=== PATIENT | male | born 1995 | race American Indian/Alaskan Native ===

== ENCOUNTER 2017-01-15 23:00 | Emergency (ER) | payer SELFPAY ==
[2017-01-15 23:13] VITALS: BP 103/58
--- NOTE | 2017-01-16 00:38 | XRay Report ---
FINAL REPORT EXAM: XR HAND 3+V RT HISTORY: Rt hand injury COMPARISON: None available. FINDINGS: Three views of right hand obtained. Transverse nondisplaced fracture of the 4th metacarpal body. There is mild deformity of the 4th and 5th metacarpal bones concerning for sequelae of prior trauma. No other definite acute fracture. Joint spaces are preserved. IMPRESSION: Acute, transverse nondisplaced fracture of the 4th metacarpal body.
== END 2017-01-16 06:16 | disposition left against medical advice (07) ==
LOC: ED 23:00
DX: S69.91XA Unspecified injury of right wrist, hand and finger(s), initial encounter (principal); X58.XXXA Exposure to other specified factors, initial encounter; Y93.9 Activity, unspecified; Y92.89 Other specified places as the place of occurrence of the external cause; Y99.9 Unspecified external cause status; Z53.21 Procedure and treatment not carried out due to patient leaving prior to being seen by health care provider

== ENCOUNTER 2018-10-09 13:32 | Emergency (ER) | payer OTHER ==
--- NOTE | 2018-10-09 14:13 | Emergency Department Report ---
Blank Doc - Documentation Documentation: 22 yo male presents to Ed cc of left foot pain and lac after concrete marble top fell on foot about 1 hour ago xra
--- NOTE | 2018-10-09 14:33 | XRay Report ---
LEFT FOOT, 3 views: History: Foot pain. A soft tissue bandage is over the distal foot which degrades bony detail. A tuft fracture of the distal phalanx of the second toe is identified. The remaining bony structures and joint spaces are within normal limits. No soft tissue foreign body is identified. IMPRESSION: Tuft fracture, distal phalanx, second toe.
[2018-10-09] MEDS ORDERED: NORCO 5/325 PO ONE (14:40)
[2018-10-09] MEDS ORDERED: XYLOCAINE 2% INFILTRATI ONE (14:40)
--- NOTE | 2018-10-09 14:44 | Emergency Department Report ---
ED Lower Extremity HPI - General Chief Complaint: Extremity Injury, Lower Stated Complaint: FRACTURED FOOT Time Seen by Provider: 10/09/18 14:12 Source: patient Mode of arrival: Wheelchair Limitations: No Limitations - History of Present Illness Initial Comments: This is a 22-year-old male who presents to emergency room with injury to left foot. The patient states he was there were in he was moving a countertop which came through the box and fell onto his left foot. He noticed bleeding from left great toe and decreased range of motion in all toes. 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 EMS was called and escorted patient to the emergency room for further evaluation. Patient reports last tetanus vaccine was 2 years ago. MD Complaint: foot injury (left) -: This afternoon Time: 12:30 Injury: Foot: Left Type of Injury: blunt Place: work Severity: severe Severity scale (0 -10): 10 Improves With: nothing Worsens With: weight bearing, movement, palpation Context: direct blow Associated Symptoms: unable to bear weight Treatments Prior to Arrival: bandage - Related Data Previous Rx's Medication Instructions Recorded Last Taken Type Clindamycin [Clindamycin CAP] 300 mg PO Q8H #21 cap 10/09/18 Unknown Rx Ibuprofen [Motrin 800 MG tab] 800 mg PO Q8HR PRN #20 tablet 10/09/18 Unknown Rx traMADol [Ultram 50 MG tab] 50 mg PO Q6HR PRN #12 tablet 10/09/18 Unknown Rx Allergies Allergy/AdvReac Type Severity Reaction Status Date / Time No Known Allergies Allergy Unverified 01/15/17 23:06 ED Review of Systems ROS: Stated complaint: FRACTURED FOOT Other details as noted in HPI Constitutional: denies: chills, fever Respiratory: denies: cough, shortness of breath, wheezing Cardiovascular: denies: chest pain, palpitations Musculoskeletal: arthralgia (left foot). denies: back pain, joint swelling Skin: lesions (laceration left great toe). denies: rash Neurological: denies: headache, weakness, paresthesias Psychiatric: denies: anxiety, depression ED Past Medical Hx - Past Medical History Previous Medical History?: No - Surgical History Past Surgical History?: No - Social History Smoking Status: Former Smoker Substance Use Type: None - Medications Home Medications: Home Medications Medication Instructions Recorded Confirmed Last Taken Type Clindamycin [Clindamycin CAP] 300 mg PO Q8H #21 cap 10/09/18 Unknown Rx Ibuprofen [Motrin 800 MG tab] 800 mg PO Q8HR PRN #20 tablet 10/09/18 Unknown Rx traMADol [Ultram 50 MG tab] 50 mg PO Q6HR PRN #12 tablet 10/09/18 Unknown Rx ED Physical Exam - General Limitations: No Limitations General appearance: alert, in no apparent distress - Respiratory Respiratory exam: Present: normal lung sounds bilaterally. Absent: respiratory distress - Cardiovascular Cardiovascular Exam: Present: regular rate, normal rhythm. Absent: systolic murmur, diastolic murmur, rubs, gallop - GI/Abdominal GI/Abdominal exam: Present: soft, normal bowel sounds - Expanded Lower Extremity Exam Left Lower Leg exam: Present: normal inspection, full ROM Ankle exam: Present: normal inspection, full ROM Foot/Toe exam: Present: tenderness (tenderness, swelling, and erythema to the second distal phalanx), swelling, laceration (2 cm irregular laceration into the dermis, serous anginous discharge, tenderness, swelling, no surrounding cellulitis.), erythema. Absent: full ROM (limited ROM of 1st and 2nd phalanx), deformity, dislocation, amputation, puncture wound, foreign body, calcaneal tenderness, tenderness at base of 5th metatarsal, nail avulsion, subungual hematoma Neuro vascular tendon exam: Present: no vascular compromise Gait: Positive: observed and limited by pain - Neurological Exam Neurological exam: Present: alert, oriented X3 - Psychiatric Psychiatric exam: Present: normal affect, normal mood - Skin Skin exam: Present: warm, dry, normal color. Absent: intact, rash ED Lower Extremity MDM - Radiology Data Radiology results: report reviewed LEFT FOOT, 3 views: History: Foot pain. A soft tissue bandage is over the distal foot which degrades bony detail. A tuft fracture of the distal phalanx of the second toe is identified. The remaining bony structures and joint spaces are within normal limits. No soft tissue foreign body is identified. IMPRESSION: Tuft fracture, distal phalanx, second toe. - Medical Decision Making Patient was examined by me. Vitals are normal and patient is in no acute distress. Obtained a x-ray of the left foot. X-rays dictated by radiologist and report reviewed by myself with the following findings: Tuft fracture, distal phalanx, second toe. There is a 2 cm laceration to first distal phalanx with serosanguineous discharge. A tetanus shot was given while in the ER. Patient refused laceration repair. The patient was given risk associated with leaving the wound open. The wound was cleaned with normal saline, Surgicel applied with 4 x 4 gauze and surgical tape. A postop surgical shoe was given with crutches and education. He was informed of importance to follow-up with a primary care doctor. He was given orthopedic surgeon referral information. Mike pompa signed AMA form and left emergency room. Critical care attestation.: If time is entered above; I have spent that time in minutes in the direct care of this critically ill patient, excluding procedure time. ED Disposition Clinical Impression: Left against medical advice Disposition: [id number] LEFT AGAINST MED ADVICE Is pt being admited?: No Condition: Stable Prescriptions: Clindamycin [Clindamycin CAP] 300 mg PO Q8H #21 cap Ibuprofen [Motrin 800 MG tab] 800 mg PO Q8HR PRN #20 tablet PRN Reason: Pain , Severe (7-10) traMADol [Ultram 50 MG tab] 50 mg PO Q6HR PRN #12 tablet PRN Reason: Pain Referrals: KIYA BULL MD [Primary Care Provider] - 3-5 Days Forms: AMA Form
[2018-10-09] MEDS ORDERED: BOOSTRIX IM ONE (16:28)
== END 2018-10-09 17:18 | disposition left against medical advice (07) ==
LOC: ED 13:32
DX: S92.532A Displaced fracture of distal phalanx of left lesser toe(s), initial encounter for closed fracture (principal); W20.8XXA Other cause of strike by thrown, projected or falling object, initial encounter; Y93.89 Activity, other specified; Y92.69 Other specified industrial and construction area as the place of occurrence of the external cause; Y99.0 Civilian activity done for income or pay

== ENCOUNTER 2019-08-04 14:51 | Emergency (ER) | payer SELFPAY ==
[2019-08-04 14:59] VITALS: BP 113/67
--- NOTE | 2019-08-04 15:28 | Emergency Department Report ---
Chief Complaint: Medical Clearance Stated Complaint: STOMACH PAIN, VOMITTING Time Seen by Provider: 08/04/19 15:16 - HPI History of Present Illness: 23 Male comes in just to get a check up after having N/V last . Has no complaints now. No abd pain no N/v. - Exam Vital Signs: Vital Signs 08/04/19 14:57 Temperature 98.2 F Pulse Rate 54 L Blood Pressure 113/67 O2 Sat by Pulse 100 Oximetry Physical Exam: axo times 3 NAD ambulatory without difficulties MSE screening note: Focused history and physical exam performed. Due to findings the following was ordered: 23 Male comes in just to get a check up after having N/V last . Has no complaints now. No abd pain no N/v. ED Disposition for MSE Condition: Stable
== END 2019-08-04 15:48 | disposition left against medical advice (07) ==
LOC: ED 14:51
DX: R11.2 Nausea with vomiting, unspecified (principal); Z53.21 Procedure and treatment not carried out due to patient leaving prior to being seen by health care provider